=== PATIENT | male | born 1995 | race Caucasian/White ===

== ENCOUNTER 2022-02-25 06:02 | Emergency (ER) | payer OTHER ==
[2022-02-25 06:18] VITALS: BP 122/93; PULSE 81; TEMP 98.5; BMI 33.6
[2022-02-25] MEDS ORDERED: DIPHTH,PERTUSS(ACELL),TET 0.5 ML DISP.SYRIN IM ONE ×2 (06:20→06:21)
== END 2022-02-25 06:28 | disposition home or self-care (01) ==
LOC: FER 06:02
PROC: 3E0234Z Introduction of Serum, Toxoid and Vaccine into Muscle, Percutaneous Approach (ICD-10-PCS; principal; 2022-02-25)
DX: S61.431A Puncture wound without foreign body of right hand, initial encounter (principal); W86.8XXA Exposure to other electric current, initial encounter; Y35.831A Legal intervention involving a conducted energy device, law enforcement official injured, initial encounter
CPT/HCPCS: 90715; 99284-25

== ENCOUNTER 2022-04-08 14:48 | Emergency (ER) | payer OTHER ==
[2022-04-08 15:03] VITALS: BP 128/85; PULSE 73; RESP 16; TEMP 98.6; BMI 33.5
[2022-04-08] MEDS ORDERED: ACETAMINOPHEN 500 MG TABLET (FP) PO ONE (15:09)
[2022-04-08] MEDS ORDERED: ACETAMINOPHEN 500 MG TABLET (FP) ONE (15:24)
[2022-04-08] MEDS ORDERED: IBUPROFEN 600 MG TABLET (FP) PO ONE ×2 (15:55→15:57)
== END 2022-04-08 16:07 | disposition home or self-care (01) ==
LOC: FER 14:48
DX: M25.511 Pain in right shoulder (principal)
CPT/HCPCS: 73030-TC-RT-FY; 99283-25

== ENCOUNTER 2022-05-27 06:02 | Emergency (ER) | payer OTHER ==
[2022-05-27 06:18] VITALS: BP 130/84; PULSE 60; RESP 16; TEMP 98; BMI 33.5
[2022-05-27] MEDS ORDERED: IBUPROFEN 600 MG TABLET (FP) PO ONE (06:37)
== END 2022-05-27 06:43 | disposition home or self-care (01) ==
LOC: FER 06:02
DX: S00.83XA Contusion of other part of head, initial encounter (principal); W50.0XXA Accidental hit or strike by another person, initial encounter
CPT/HCPCS: 99283-25

== ENCOUNTER 2022-12-20 02:23 | Emergency (ER) | payer OTHER ==
[2022-12-20 02:33] VITALS: BP 122/89; PULSE 68; RESP 18; TEMP 98.3; BMI 29.6
[2022-12-20] MEDS ORDERED: IBUPROFEN 400 MG TABLET (FP) PO ONE ×2 (02:46→02:49)
== END 2022-12-20 03:19 | disposition home or self-care (01) ==
LOC: FER 02:23
DX: M79.661 Pain in right lower leg (principal); Y04.8XXA Assault by other bodily force, initial encounter; Y99.0 Civilian activity done for income or pay
CPT/HCPCS: 99282-25

== ENCOUNTER 2023-06-16 04:45 | Emergency (ER) | payer OTHER ==
[2023-06-16 04:54] VITALS: BP 128/85; PULSE 65; RESP 16; TEMP 98.5; BMI 29.6
[2023-06-16] MEDS ORDERED: CEPHALEXIN MONOHYDRATE 500 MG CAPSULE (UD) PO ONE (05:19)
[2023-06-16] MEDS ORDERED: CEPHALEXIN MONOHYDRATE 500 MG CAPSULE (UD) ONE (05:20)
== END 2023-06-16 05:25 | disposition home or self-care (01) ==
LOC: FER 04:45
PROC: 0HQFXZZ Repair Right Hand Skin, External Approach (ICD-10-PCS; principal; 2023-06-16)
DX: S61.210A Laceration without foreign body of right index finger without damage to nail, initial encounter (principal); W26.8XXA Contact with other sharp object(s), not elsewhere classified, initial encounter
CPT/HCPCS: 99283-25

== ENCOUNTER 2023-06-21 02:19 | Emergency (ER) | payer OTHER ==
[2023-06-21 02:25] VITALS: BP 138/68; PULSE 70; RESP 14; BMI 30.4
== END 2023-06-21 03:38 | disposition home or self-care (01) ==
LOC: FER 02:19
DX: S16.1XXA Strain of muscle, fascia and tendon at neck level, initial encounter (principal); M54.2 Cervicalgia; X50.9XXA Other and unspecified overexertion or strenuous movements or postures, initial encounter
CPT/HCPCS: 72050-TC-FY; 99283-25